=== PATIENT | male | born 2005 | race African-American/Black ===

== ENCOUNTER 2023-04-29 08:25 | Emergency (ER) | payer MEDICAID, OTHER ==
[~2023-04-29] VITALS: Ht 167.6 cm; Wt 73.0 kg
[2023-04-29 09:24] VITALS: BP 147/65; PULSE 86; RESP 18; TEMP 98.3; O2SAT 98
[2023-04-29] MEDS ORDERED: IBUP-1456 PO (09:49)
== END 2023-04-29 10:08 | disposition home or self-care (01) ==
LOC: ER 08:25
DX: S42.021A Displaced fracture of shaft of right clavicle, initial encounter for closed fracture (principal); V00.311A Fall from snowboard, initial encounter; Y93.89 Activity, other specified; Y92.89 Other specified places as the place of occurrence of the external cause; Y99.8 Other external cause status
CPT/HCPCS: 73030